=== PATIENT | female | born 1970 | race Caucasian/White ===

== ENCOUNTER 2018-07-30 07:14 | Emergency (ER) | END 2018-07-30 12:47 | disposition home or self-care (01) ==

== ENCOUNTER 2019-03-02 06:35 | Emergency (ER) | payer OTHER ==
[~2019-03-02] VITALS: Wt 68.0 kg
[~2019-03-02 06:35] MED LIST: ACET325T33 PO; ASPI-817 PO; CELEXA PO; COLACE PO; DICY10CA40 PO; IBUP800T48 PO; METFORMIN PO; NAPROXEN PO; OMEPRAZOLE PO; ONDA4TAB8 PO; TRAM50TA2 PO; TRAZODONE PO
[2019-03-02 06:37] VITALS: BP 144/91; PULSE 85; RESP 18
[2019-03-02] MEDS ORDERED: D-ME473S2 PO (07:01)
[2019-03-02] MEDS ORDERED: BENZ-6 PO (07:01)
[2019-03-02] MEDS ORDERED: ACET325T33 PO (07:01)
[2019-03-02] MEDS ORDERED: IBUP800T48 PO (07:01)
[2019-03-02] MEDS ORDERED: PSEU-79 PO (07:01)
--- NOTE | 2019-03-02 07:11 | ERD ---
ER Documentation Chief Complaint Chief Complaint r ear pain since yesterday with sore throat but no recent fevers. HPI 48-year-old female presenting with right ear pain that started yesterday. Patient had a sore throat with a runny nose for the last 3 days. Had a fever last night that was tactile and took ibuprofen about 7 hours ago. Has not taken medications since. Denies any vomiting. Denies any chest pain or shortness of breath. No sick contacts. Patient is diabetes ulb-[id number]-blccicwmo hypercholesterolemia and gastritis. NKDA. Surgical history is carpal tunnel release. Social history denies ROS All systems reviewed and are negative except as per history of present illness. Medications Home Meds Active Scripts Acetaminophen* (Tylenol*) 325 Mg Tablet, 2 TAB PO Q8 PRN for PAIN AND OR ELEVATED TEMP, #20 TAB Prov:JOSÉ KIMBALL PA-C 03/02/19 Ibuprofen* (Motrin*) 800 Mg Tab, 800 MG PO Q6, #30 TAB Prov:JOSÉ KIMBALL PA-C 03/02/19 Dextromethorphan Hb-Promethazine Hcl* (Promethazine DM* Syrup) 473 Ml Syrup, 5 ML PO Q6 PRN for COUGH, #100 ML Prov:JOSÉ KIMBALL PA-C 03/02/19 Benzonatate* (Tessalon Perle*) 100 Mg Capsule, 100 MG PO Q8H PRN for COUGH, #30 CAP Prov:JOSÉ KIMBALL PA-C 03/02/19 Pseudoephedrine Hcl* (Suphedrin*) 30 Mg Tablet, 30 MG PO Q6 PRN for CONGESTION, #30 TAB Prov:JOSÉ KIMBALL PA-C 03/02/19 Aspirin* (Aspirin* EC) 81 Mg Tablet.dr, 81 MG PO DAILY, #30 TAB Prov:PASILAGEOVANNY FRANKS 07/30/18 Ibuprofen* (Motrin*) 800 Mg Tab, 800 MG PO Q6H PRN for PAIN AND OR ELEVATED TE MP, #30 TAB Prov:ROSALINAILASABRINA FRANKSAR F 07/30/18 Dicyclomine HCl (Dicyclomine HCl) 10 Mg Capsule, 10 MG PO BID, #30 CAP Prov:LISSETTE TRUONG PA-C 07/12/16 Ondansetron Hcl* (Zofran*) 4 Mg Tablet, 4 MG PO Q6H for NAUSEA AND/OR VOMITING, #30 TAB Prov:LISSETTE TRUONG Michael VAUGHN 07/12/16 Tramadol HCl (Tramadol HCl) 50 Mg Tablet, 50 MG PO Q4 PRN for PAIN, #20 TAB Prov:GARLANDLISSETTE PA-C 07/12/16 Tramadol HCl (Tramadol HCl) 50 Mg Tab, 50 MG PO Q6 PRN for PAIN, #10 TAB Prov:TONEYTjMISTI M. 06/10/15 Acetaminophen* (Tylenol*) 325 Mg Tablet, 2 TAB PO Q6 PRN for PAIN AND OR ELEVATED TEMP, #20 TAB Prov:MISTI BRANDT. 06/10/15 Reported Medications [Naproxen] No Conflict Check, PO BID PRN 10/05/13 [Metformin] No Conflict Check, PO DAILY 10/05/13 [Colace] No Conflict Check, PO BID 10/05/13 [Omeprazole] No Conflict Check, PO DAILY 10/05/13 [Trazodone] No Conflict Check, PO HS 10/05/13 [Celexa] No Conflict Check, PO DAILY 10/05/13 Allergies Allergies: Coded Allergies: No Known Drug Allergies (Verified Allergy, 10/05/13) PMhx/Soc History of Surgery: Yes (carpol tunnel surgery, gretel.) Anesthesia Reaction: No Hx Neurological Disorder: No Hx Respiratory Disorders: No Hx Cardiac Disorders: Yes (high cholesterol ) Hx Psychiatric Problems: No Hx Miscellaneous Medical Probl: Yes (gastritis, dm) Hx Alcohol Use: No Hx Substance Use: No Hx Tobacco Use: No FmHx MDM: 48-year-old female presenting with URI type symptoms. Patient's vitals are stable and patient exam is non-concerning. I do not feel that patient requires antibiotics. Patient will be discharged with supportive medications. I have low suspicion for bacterial HEENT infection. I have low suspicion for meningitis or sepsis. I have low suspicion for pneumonia. Patient is discharged with supportive medications and told to follow-up with primary care within 1 to 2 days for close evaluation. All questions answered at discharge Family History: No diabetes, No coronary disease, No other Physical Exam Vitals Vital Signs Date Temp Pulse Resp B/P (MAP) Pulse Ox O2 O2 Flow FiO2 Time Delivery Rate 03/02/19 97.7 85 18 144/91 98 06:37 (108) Physical Exam GENERAL: The patient is well-appearing, well-nourished, in no acute distress HEENT: Atraumatic. Conjunctivae are pink. Pupils equal, round, and reactive to light. There is no scleral icterus. Tympanic membranes clear bilaterally. Oropharynx clear. NECK: C-spine is soft and supple. There is no meningismus. There is no cervical lymphadenopathy. CHEST: Clear to auscultation bilaterally. There are no rales, wheezes or rhonchi. HEART: Regular rate and rhythm. No murmurs, clicks, rubs or gallops. Departure Diagnosis: Primary Impression: Viral URI Condition: Stable Patient Instructions: Uri, Viral, No Abx (Adult) Referrals: [facility] YOU HAVE RECEIVED A MEDICAL SCREENING EXAM AND THE RESULTS INDICATE THAT YOU DO NOT HAVE A CONDITION THAT REQUIRES URGENT TREATMENT IN THE EMERGENCY DEPARTMENT. FURTHER EVALUATION AND TREATMENT OF YOUR CONDITION CAN WAIT UNTIL YOU ARE SEEN IN YOUR DOCTORS OFFICE WITHIN THE NEXT 1-2 DAYS. IT IS YOUR RESPONSIBILITY TO MAKE AN APPOINTMENT FOR FOLOW-UP CARE. IF YOU HAVE A PRIMARY DOCTOR --you should call your primary doctor and schedule an appointment IF YOU DO NOT HAVE A PRIMARY DOCTOR YOU CAN CALL OUR PHYSICIAN REFERRAL HOTLINE AT IF YOU CAN NOT AFFORD TO SEE A PHYSICIAN YOU CAN CHOSE FROM THE FOLLOWING [facility] [address] [facility] [facility] [address] [facility] [facility] [address] [facility] [facility] [address] [facility]. [facility] [address] [facility]. [facility] [address] Additional Instructions: FOLLOW UP WITH YOUR PRIMARY CARE PHYSICIAN TOMORROW.Return to this facility if you are not improving as expected. JOSÉ KIMBALL PA-C Mar 02, 2019 07:11
== END 2019-03-02 07:22 | disposition home or self-care (01) ==
LOC: FTE 06:35
DX: J06.9 Acute upper respiratory infection, unspecified (principal); E11.9 Type 2 diabetes mellitus without complications; Z79.82 Long term (current) use of aspirin
CPT/HCPCS: 99283